=== PATIENT | male | born 1995 | race Caucasian/White ===

== ENCOUNTER 2017-03-30 16:23 | Emergency (ER) | payer OTHER ==
[~2017-03-30] VITALS: Ht 170.2 cm; Wt 74.0 kg
[2017-03-30 16:26] VITALS: Ht 170.2 cm; Wt 74.0 kg
--- NOTE | 2017-03-30 17:43 | RADRPT ---
PROCEDURE: CT Head without. CLINICAL INDICATION: Head trauma. TECHNIQUE: The study was performed utilizing a multi-slice, multidetector CT scanner. Direct spira l 1 mm axial sections were obtained through the head without the use of intravenous contrast materia l. 1 or more of the following dose reduction techniques were utilized: Automated exposure control, adjustment of the mA and/or kV according to patient's size, iterative reconstruction technique. Co ruy and sagittal reformations were obtained. The images were reviewed on a PACS workstation. RADIATION DOSE: CTDIvol: 43.2 mGyDLP: 849.7 mGy-cm COMPARISON: No prior studies are available for comparison. FINDINGS: There is no intracranial hemorrhage, extra-axial fluid collection, mass lesion, midline shift or hyd rocephalus. The ventricles, sulci and cisterns are within normal limits. The white matter is unrem arkable. The sky-white matter differentiation is preserved. The basal cisterns are patent. The m idline structures are intact. The orbits, calvarium and extracranial soft tissues are normal in lashanda earance. The visualized paranasal sinuses, mastoid air cells and middle ear cavities are normally ae rated. IMPRESSION: 1. No acute intracranial abnormality. No intracranial hemorrhage, extra-axial fluid collection, ma ss lesion or hydrocephalous. RPTAT: DD .Nick May MD, MD Date Time Electronically viewed and signed by .Nick May MD, MD on 03/30/2017 17:43 .S/
--- NOTE | 2017-03-30 18:09 | ERD ---
ER Documentation Chief Complaint Date/Time DATE: 03/30/17 TIME: 18:07 Chief Complaint left druze and jaw pain s/p hit with baseball at about 95mph HPI This is a 21-year-old male who presents to the emergency room after he was struck in the left portion of his head with a baseball going approximately 95 mi./h during baseball practice. The patient was not wearing a helmet, and states that he did hit the side of his head. He denies any loss of consciousness, and states that he came to the ER for evaluation. He is denying any blurred vision, denying any bleeding and states that his pain is under control after he took Motrin. ROS All systems reviewed and are negative except as per history of present illness. Allergies Allergies: Coded Allergies: Penicillins (Verified Allergy, Intermediate, hives, 03/30/17) PMhx/Soc Medical and Surgical Hx: pt denies Medical Hx, pt denies Surgical Hx Hx Alcohol Use: Yes Hx Substance Use: No Hx Tobacco Use: No Smoking Status: Never smoker Physical Exam Vitals Vital Signs Date Time Temp Pulse Resp B/P Pulse Ox O2 Delivery O2 Flow Rate FiO2 03/30/17 16:26 98.2 90 18 126/78 100 Physical Exam INITIAL VITAL SIGNS: Reviewed by me GENERAL: The patient is well developed and appropriate for usual state of health in no apparent distress HEENT: No depressed skull fractures, pupils equal, round, and reactive to light. EOMI. There is no scleral icterus. NECK: C-spine is soft and supple, there is no meningismus. There is no cervical lymphadenopathy. LUNGS: Clear to auscultation bilaterally. There are no rales, wheezes or rhonchi. HEART: Regular rate and rhythm, no murmurs, clicks, rubs or gallops. ABDOMEN: Soft, non-tender, non-distended. There are bowel sounds in all four quadrants. No rebound or guarding. EXTREMITIES: There is no peripheral cyanosis or edema. No focal swelling or erythema. NEUROLOGICAL: The patient moves all four extremities with 5/5 strength. Cranial nerves II - XII are intact. Normal gait. Alert and oriented SKIN: Superficial abrasion noted over the left temporal area, no active bleeding , no expanding mass there is no apparent rash or petechiae. HEME/LYMPHATIC: There is no evidence of excessive bruising or lymphedema. PSYCHIATRIC: The patient does not appear anxious or depressed. Procedures/MDM CT brain without: 1. No acute intracranial abnormality. No intracranial hemorrhage, extra-axial fluid collection, mass lesion or hydrocephalous. This is a 21-year-old male who presents to the emergency room for evaluation after being struck in the head with a baseball. He had no loss of consciousness. He did have superficial abrasion over the left temporal region. The patient had no focal neurological deficits on my examination. He was in no acute distress. The patient did undergo a CT of the brain which does not demonstrate any intracranial abnormality. The patient is alert and oriented to person place and time and will be discharged at this time. Departure Diagnosis: Primary Impression: Closed head injury Additional Impression: Struck by baseball Condition: Stable BERNARD MILLAN DO Mar 30, 2017 18:09
== END 2017-03-30 18:20 | disposition home or self-care (01) ==
LOC: FTE 16:23
DX: S09.90XA Unspecified injury of head, initial encounter (principal); R93.0 Abnormal findings on diagnostic imaging of skull and head, not elsewhere classified; W21.03XA Struck by baseball, initial encounter; Y92.9 Unspecified place or not applicable
CPT/HCPCS: 70450; Z7502